=== PATIENT | female | born 1990 | race Two or more races ===

== ENCOUNTER 2018-01-20 23:59 | Emergency (ER) | payer MEDICAID, OTHER ==
[~2018-01-20] VITALS: Ht 165.1 cm; Wt 78.5 kg
[2018-01-21 04:31] VITALS: BP 128/56
[2018-01-21] MEDS ORDERED: ACETAMINOPHEN 500 MG TAB PO ONE ×2 (04:35→04:45)
== END 2018-01-21 05:18 | disposition home or self-care (01) ==
LOC: ER 23:59
DX: S93.491A Sprain of other ligament of right ankle, initial encounter (principal); X58.XXXA Exposure to other specified factors, initial encounter; Y93.02 Activity, running; Y92.89 Other specified places as the place of occurrence of the external cause; Y99.8 Other external cause status
CPT/HCPCS: 29515; 73600

== ENCOUNTER 2019-08-18 19:13 | Emergency (ER) | payer MEDICAID ==
[~2019-08-18] VITALS: Ht 165.1 cm; Wt 88.0 kg
[2019-08-18 20:25] VITALS: BP 135/85
[2019-08-18] MEDS ORDERED: TETANUS-DIPTH-ACEL PERTUSSIS 0.5ML SYRG IM ONE (21:00)
[2019-08-18] MEDS ORDERED: KETOROLAC TROMETH 60MG/2ML VIAL IM ONE (21:15)
[2019-08-18] MEDS ORDERED: cefTRIAXone SOD 1,000 MG VL IM ONE (21:15)
[2019-08-18] MEDS ORDERED: LIDOCAINE 1% HCL (LOCAL ANESTH.) INJ 20ML MDV ONE (21:21)
[2019-08-18] MEDS ORDERED: NEOMYCIN-BACITRACIN-POLYM UNITDOSE PKG TOP OINT TOP ONE (21:45)
[2019-08-18] MEDS ORDERED: LIDOCAINE 1% HCL (LOCAL ANESTH.) INJ 20ML MDV ID ONE (21:45)
== END 2019-08-18 21:59 | disposition home or self-care (01) ==
LOC: ER 19:13
DX: S61.411A Laceration without foreign body of right hand, initial encounter (principal); S61.431A Puncture wound without foreign body of right hand, initial encounter; W54.0XXA Bitten by dog, initial encounter; Y93.89 Activity, other specified; Y92.89 Other specified places as the place of occurrence of the external cause; Y99.8 Other external cause status
CPT/HCPCS: 12001; 73130; 90471; 90715; 96372; 99283; J0696; J1885; J2001